=== PATIENT | male | born 1980 | race Caucasian/White ===

== ENCOUNTER 2020-10-17 06:59 | Emergency (ER) | payer MEDICAID, SELFPAY ==
[2020-10-17 07:00] VITALS: TEMP 36.1; BMI 33.5
[2020-10-17 07:01] VITALS: BP 55/41; BP 66/47; BP 69/44; PULSE 126; PULSE 130; PULSE 140; PULSE 143; RESP 13; O2SAT 91; O2SAT 96
[2020-10-17 07:24] VITALS: BP 66/47; PULSE 126; RESP 13; O2SAT 96
[2020-10-17 07:30] VITALS: BP 63/33; PULSE 98; RESP 13; O2SAT 100
[2020-10-17 07:37] VITALS: BP 44/28; PULSE 105; RESP 13; O2SAT 100
[2020-10-17 07:47] VITALS: BP 50/37; PULSE 85; RESP 11; O2SAT 93
[2020-10-17] MEDS: Calcium Chloride 1 GM/10 ML Syringe IV (07:47)
[2020-10-17] MEDS: Cefazolin 1 GM/50 ML BAG IV (07:57)
--- NOTE | 2020-10-17 08:15 | ED.RN ---
PT ARRIVED TO THE ED AT 0659. PT PUPILS FIXED AND DILATED PER DR WILLIAMSON. SHELLEY NEEDLE DECOMPRESSANTS ON ARRIVAL. TURNICOT APPLIED TO LEFT UPPER LEG X2 BY Khurram ALMEIDA RN. TRAUMA BLOOD 2 UNITS INFUSED AT 0728. 3RD TRAUMA BLOOD INFUSED AT 0738. 4TH TRAUMA BLOOD INFUSED AT 0747.
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
--- NOTE | 2020-10-17 08:21 | RAD_ITS ---
STUDY: X-RAY CHEST REASON FOR EXAM: Male, 0 days old. TRAUMA TECHNIQUE: Single AP portable view of the chest. COMPARISON: None. FINDINGS: Tip of the ET tube is 3 cm above the carlton, there are bilateral chest tubes noted as well as tubes over the lung apices. No pneumothorax or mediastinal shift is noted, there is subcutaneous emphysema along the left chest. Lungs are expanded with opacifications in the right upper and left lower lobes suspicious for infiltrates. No demonstrated effusions. Normal size heart. Normal mediastinum and jose. Normal visualized pulmonary arteries. Normal visualized aortic arch and descending thoracic aorta. Normal visualized thoracic spine. Normal visualized ribs, clavicles, and shoulders. Distended stomach noted RAD/Chest 1 View (Portable) IMPRESSION: Support lines and tubes noted. No complications or pneumothorax noted. Tip of the ET tube is 3 cm above the carlton Right upper and left lower lobe infiltrate suspected without effusions Left subcutaneous emphysema Air-filled distended stomach. Electronically Signed: Rizwan Mejia MD at 8:36 EDT , Service support ,
--- NOTE | 2020-10-17 08:44 | ED.RN ---
Addendum entered by Mal Holloway 10/17/20 08:54: pulse lost at 0815. Original Note: time of called by dr johnston at 0816
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
== END 2020-10-17 09:28 ==
PROVIDERS: Emergency Provider Emergency Medicine
DX: I46.9 Cardiac arrest, cause unspecified (principal); T79.4XXA Traumatic shock, initial encounter; S02.92XB Unspecified fracture of facial bones, initial encounter for open fracture; R40.2432 Glasgow coma scale score 3-8, at arrival to emergency department; S82.202B Unspecified fracture of shaft of left tibia, initial encounter for open fracture type I or II; V89.2XXA Person injured in unspecified motor-vehicle accident, traffic, initial encounter; Y93.9 Activity, unspecified; Y92.9 Unspecified place or not applicable; Y99.9 Unspecified external cause status
CPT/HCPCS: 31500; 32551; 36430; 51702; 71045; 86850; 86900; 86901; 86920; 86922; 92950; 96374; 96375; 99283; J7030; J7040; P9016; A4216